=== PATIENT | male | born 1990 ===

== ENCOUNTER 2018-12-14 20:16 | Emergency (ER) | payer BC ==
[2018-12-14] MEDS ORDERED: Ondansetron INJ* 2 MG/ML VIAL IV ONE (20:28)
[2018-12-14] MEDS ORDERED: NS 0.9% 1000 ML** 1,000 ML IV ONE ×2 (20:28→21:03)
[2018-12-14] MEDS ORDERED: Ketorolac INJ* 30 MG/ML 1 ML VIAL IV ONE (20:28)
--- NOTE | 2018-12-14 20:43 | ED ---
Syncope/Near Syncope - HPI Summary HPI Summary: This patient is a 28 year old M presenting to [facility] accompanied by with a chief complaint of syncope since today 12/14/18 at 1230. Patient reports he vomited and had diarrhea then went back to sleep today but woke up and was lightheaded. Pt reports he then got up, felt lightheaded, had syncopal event where he fell from standing. Pt reports vomited 2 x prior to syncopal episode. Pt's reports syncope for 30 sec. Denies seizure like activity. Patient reports feeling shaky and having mild abdominal cramping. Denies fever, AVALOS, CP. Denies Mhx, Shx. FMHx strokes, heart attacks. 1 yr old child recently got over Croup but no other sick contacts. - History Of Current Complaint Chief Complaint: EDSyncope Time Seen by Provider: 12/14/18 20:18 Hx Obtained From: Patient Onset/Duration: Lasting Hours, Still Present Timing: Constant Context: Witnessed, Loss Of Consciousness - 30 sec Aggravating Factor(s): Nothing Alleviating Factor(s): Nothing Associated Signs And Symptoms: Diarrhea, Dizzy, Vomiting, Other - shaky, abdominal pain; denies fever and AVALOS - Allergies/Home Medications Allergies/Adverse Reactions: Allergies Allergy/AdvReac Type Severity Reaction Status Date / Time No Known Allergies Allergy Verified 12/14/18 20:26 Home Medications: Home Medications NK [No Home Medications Reported] 12/14/18 [History Confirmed 12/14/18] PMH/Surg Hx/FS Hx/Imm Hx Endocrine/Hematology History: Denies: Hx Diabetes Sensory History: Denies: Hx Legally Blind, Hx Deafness Opthamlomology History: Denies: Hx Legally Blind EENT History: Denies: Hx Deafness - Surgical History Surgery Procedure, Year, and Place: none Infectious Disease History: No Infectious Disease History: Denies: Traveled Outside the [place] in Last 30 Days - Family History Known Family History: Positive: Cardiac Disease - heart attacks, Other - strokes - Social History Alcohol Use: Occasionally Hx Substance Use: No Substance Use Type: Reports: None Hx Tobacco Use: Yes Smoking Status (MU): Former Smoker Review of Systems Positive: Other - shaking. Negative: Fever Positive: Abdominal Pain, Vomiting, Diarrhea Neurological: Other - dizziness Positive: Syncope. Negative: Headache All Other Systems Reviewed And Are Negative: Yes Physical Exam - Summary Physical Exam Summary: Constitutional: Well-developed, Well-nourished, Alert. (-) Distressed Skin: clammy HENT: Normocephalic; Atraumatic Eyes: Conjunctiva normal Neck: Musculoskeletal ROM normal neck. (-) JVD, (-) Stridor, (-) Nuchal rigidity Cardio: Rhythm regular, rate normal, Heart sounds normal; Intact distal pulses; Radial pulses are 2+ and symmetric. (-) Murmur Pulmonary/Chest wall: Effort normal. (-) Respiratory distress, (-) Wheezes, (-) Rales Abd: Soft, (-) tenderness, (-) Distension, (-) Guarding, (-) Rebound Musculoskeletal: (-) Edema Lymph: (-) Cervical adenopathy Neuro: Alert, Oriented x3 Psych: Mood and affect Normal Triage Information Reviewed: Yes Vital Signs On Initial Exam: Initial Vitals Temp Pulse Resp BP Pulse Ox 98.2 F 81 18 109/58 97 12/14/18 20:17 12/14/18 20:17 12/14/18 20:17 12/14/18 20:17 12/14/18 20:17 Vital Signs Reviewed: Yes Procedures - Sedation Patient Received Moderate/Deep Sedation with Procedure: No Diagnostics - Vital Signs Vital Signs Temp Pulse Resp BP Pulse Ox 12/14/18 20:17 98.2 F 81 18 109/58 97 - Laboratory Result Diagrams: 12/14/18 20:38 12/14/18 20:38 Lab Statement: Any lab studies that have been ordered have been reviewed, and results considered in the medical decision making process. - Radiology Chest X-Ray Radiology Interpretation Completed By: ED Physician Summary of Radiographic Findings: Per ED physician,. No acute process. Pending official report. - EKG 2026 Cardiac Rate: NL - 71 BPM Summary of EKG Findings: An EKG at 2026 reveals normal sinus rhythm at 71 BPM, nml axis, nml intervals. No STEMI. No acute changes. Artifact secondary to patient shaking. Re-Evaluation - Re-Evaluation First Eval Re-Evaluation Time: 21:40 Change: Improved - Patient feeling better after IVF. Mg and K repleted. No episodes of lightheadedness here. No vomiting. States he has zofran at home. Course/Dx Course Of Treatment: 28-year-old male with nausea vomiting and diarrhea presents with syncopal episode. EKG sinus with artifact. Labs notable for potassium of 3.3 and magnesium 1. of blood was repleted. Mild leukocytosis of 12. Abdomen soft. Syncope. DDx: Most likely vasovagal vs dehydration. Seizure: no witnessed seizure activity, incontinence or h/o seizures to suggest seizure today. Hypoxia and hypoglycemia less likely in this patient with normal sats and BG. Cardiac issue: electrical (dysarrhythmias, brugada, WPW, long QT). Less likely given no evidence of drop attack, no palpitations, no EKG findings to predispose to arrhythmias. No CP, no STEMI on EKG; NSTEMI unlikely to cause brief cardiogenic shock in absence of other significant findings, so likely does not need full cardiac rule out with troponins and stress. Mechanical: outflow obstruction like HOCM or aortic stenosis, tamponade-less likely as no murmur, non-exertional, no hypertrophy on EKG. Vessels: PE, dissection, AAA. Clinical picture inconsistent, no abd pain, no pulsatile mass, symmetric pulses, no risk factors of PE. Neuro: No AVALOS, no personal or family h/ o cerebral aneurysm, nml neuro exam, so this is unlikely ICH or sentinel bleed - Diagnoses Provider Diagnoses: Nausea, vomiting, and diarrhea, Syncope Discharge ED - Sign-Out/Discharge Documenting (check all that apply): Patient Departure - discharge - Discharge Plan Condition: Stable Disposition: HOME Patient Education Materials: Syncope (ED), Acute Nausea and Vomiting (ED) Referrals: [facility] [Outside] - 3 Days Additional Instructions: You were seen in the emergency department for nausea vomiting diarrhea and passing out. Your labs showed a slightly low potassium and magnesium, we gave you both of these in emergency department. Your EKG did not show any acute changes. Chest x-ray was unremarkable. If any studies were not completed at the time of discharge you will be called with the relevant results. Please drink lots of fluids including Gatorade. Please follow up with your primary care doctor in next 2-3 days and return to emergency department for worsening abdominal pain, passing out, inability to eat or drink, or concerning symptoms. It was a pleasure taking care of you today. - Billing Disposition and Condition Condition: STABLE Disposition: Home - Attestation Statements Document Initiated by Scribe: Yes Documenting Scribe: Joyce Clements Provider For Whom Librado is Documenting (Include Credential): Dr. Chon Bennett MD Scribe Attestation: I, Joyce Clements, scribed for Dr. Chon Bennett MD on 12/14/18 at 2223. Scribe Documentation Reviewed: Yes Provider Attestation: The documentation as recorded by the Joyce glez accurately reflects the service I personally performed and the decisions made by me, Dr. Chon Bennett MD Status of Scribe Document: Viewed
[2018-12-14 20:44] LABS: ABS Eosinophils 0.3 10^3/ul (0-0.6); ABS Lymphocytes 1.7 10^3/ul (1.0-4.8); ABS Neutrophils 9.6 10^3/ul (1.5-7.7); Eosinophil % 2.4 %; Hematocrit 41 % (42-52); Hemoglobin 14.4 g/dL (14.0-18.0); Lymphocyte % 13.4 %; Mean Corpuscular HGB Conc 35 g/dL (31-36); Mean Corpuscular Hemoglobin 29 pg (27-31); Mean Corpuscular Volume 84 fL (80-94); Mean Platelet Volume 7.7 fL (7.4-10.4); Platelet Count 284 10^3/uL (150-450); Red Cell Distribution Width 13 % (10-15); White Blood Count 12.6 10^3/uL (3.5-10.8)
[2018-12-14 21:00] LABS: Albumin/Globulin Ratio 1.7 (1-3); BUN/Creatinine Ratio 23.8 (8-20); Calcium 9.1 mg/dL (8.6-10.3); EGFR African American 100.3 (>60); EGFR Non-African American 82.9 (>60); Globulin 2.4 g/dL (2-4); Magnesium 1.7 mg/dL (1.9-2.7); Potassium 3.3 mmol/L (3.5-5.0); Total Protein 6.4 g/dL (6.4-8.9)
[2018-12-14] MEDS ORDERED: Potassium Chlor TAB* 20 MEQ TAB.ER PO ONE (21:03)
[2018-12-14 22:05] VITALS: BP 108/64
== END 2018-12-14 22:04 | disposition home or self-care (01) ==
LOC: ED 20:16
DX: R11.2 Nausea with vomiting, unspecified (principal); R19.7 Diarrhea, unspecified; R55 Syncope and collapse; I48.91 Unspecified atrial fibrillation; R94.31 Abnormal electrocardiogram [ECG] [EKG]; Z82.49 Family history of ischemic heart disease and other diseases of the circulatory system; Z87.891 Personal history of nicotine dependence
CPT/HCPCS: 36415; 71045; 80053; 83690; 83735; 85025; 93005; 96361; 96374; 96375; 99282; A9270-GY; J1885; J2405

== ENCOUNTER 2019-03-06 07:17 | Emergency (ER) | payer SELFPAY ==
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
[2019-03-06 09:39] VITALS: BP 108/54
== END 2019-03-06 09:10 | disposition home or self-care (01) ==
LOC: ED 07:17
DX: S06.0X9A Concussion with loss of consciousness of unspecified duration, initial encounter (principal); S09.90XA Unspecified injury of head, initial encounter; R51 Headache; R42 Dizziness and giddiness; Z87.891 Personal history of nicotine dependence; H53.8 Other visual disturbances; V47.0XXA Car driver injured in collision with fixed or stationary object in nontraffic accident, initial encounter; Y92.410 Unspecified street and highway as the place of occurrence of the external cause
CPT/HCPCS: 70450; 72125; 99282

== ENCOUNTER 2022-07-24 14:25 | Inpatient (IN) ==
[2022-07-25] MEDS ORDERED: Al Hydrox/Mg Hydrox/Simet LIQ 30 ML UDC PO PRN (11:17)
[2022-07-25] MEDS ORDERED: OLANZapine 5 mg TAB *ODT PO PRN (11:20)
[2022-07-25] MEDS ORDERED: LORazepam 2 mg VIAL 1 ml ONE (12:46)
[2022-07-25] MEDS ORDERED: Haloperidol 5 mg/ml SDV IV/IM 5 MG/ML AMP ONE (12:46)
[2022-07-26] MEDS: Nicotine GUM 4MG FRUIT FLAVOR PO PRN ×7 (01:16→19:40)
[2022-07-26 08:15] LABS: HDL Cholesterol 51.9 mg/dL
[2022-07-26] MEDS: Nicotine Lozenge mini 4 MG LOZNG.MINI MT PRN ×2 (15:42→18:08)
[2022-07-27] MEDS: Nicotine GUM 4MG FRUIT FLAVOR PO PRN ×6 (06:05→21:27)
[2022-07-27] MEDS: Nicotine Lozenge mini 4 MG LOZNG.MINI MT PRN ×7 (06:17→22:34)
[2022-07-28] MEDS: Nicotine Lozenge mini 4 MG LOZNG.MINI MT PRN ×2 (04:43→20:46)
[2022-07-28] MEDS: Nicotine GUM 4MG FRUIT FLAVOR PO PRN ×6 (07:19→19:21)
[2022-07-29] MEDS: Nicotine Lozenge mini 4 MG LOZNG.MINI MT PRN ×3 (05:43→17:40)
[2022-07-29] MEDS: Nicotine GUM 4MG FRUIT FLAVOR PO PRN ×3 (07:17→16:18)
[2022-07-30] MEDS: Nicotine GUM 4MG FRUIT FLAVOR PO PRN ×3 (07:28→14:10)
[2022-07-30] MEDS: Nicotine Lozenge mini 4 MG LOZNG.MINI MT PRN ×2 (08:53→12:18)
[2022-07-30] MEDS: Nicotine GUM 2MG FRUIT FLAVOR PO PRN ×2 (16:35→18:50)
[2022-07-30] MEDS: Nicotine Lozenge mini 2 MG LOZNG.MINI MT PRN (19:56)
[2022-07-31] MEDS: Nicotine GUM 2MG FRUIT FLAVOR PO PRN ×7 (04:24→20:19)
[2022-07-31] MEDS: Nicotine Lozenge mini 2 MG LOZNG.MINI MT PRN ×4 (07:52→21:56)
[2022-08-01] MEDS: Nicotine Lozenge mini 2 MG LOZNG.MINI MT PRN (07:38)
[2022-08-01] MEDS: Nicotine GUM 2MG FRUIT FLAVOR PO PRN ×2 (08:21→10:58)
[2022-08-01 09:39] VITALS: BP 134/75
== END 2022-08-01 14:00 | disposition home or self-care (01) | DRG 753 ==
LOC: BSU 07-25 10:56
PROVIDERS: ADMIT Psychiatry & Neurology Psychiatry; ATTEND Psychiatry & Neurology Psychiatry